=== PATIENT | male | born 1985 | race Caucasian/White ===

== ENCOUNTER 2019-04-29 19:13 | Emergency (ER) | payer SELFPAY ==
[~2019-04-29] VITALS: Ht 172.7 cm; Wt 84.0 kg
[2019-04-29 19:24] VITALS: BP 126/83
--- NOTE | 2019-04-29 19:30 | NUR ---
PT AMBULATED W/ STEADY GAIT TO BED 11.
--- NOTE | 2019-04-29 19:30 | NUR ---
33 Y/O MALE C/O THROAT PAIN WITH SWALLOWING X5 DAYS. VSS. SEEN AT BEDSIDE BY PA. CONTINUE TO MONITOR.
[2019-04-29] MEDS ORDERED: IBUPROFEN 400 MG TAB PO ONE (19:40)
--- NOTE | 2019-04-29 20:17 | NUR ---
DISCHARGE PAPERS GIVEN TO PT. PT STATES 3/10 THROAT PAIN BUT TOLLERABLE. RX OF IBUPROFEN GIVEN. SIDE EFFECTS EXPLAINED. INSTRUCTED TO F/U WITH PCP AND WHEN TO RETURN TO ER. PT VERBALLIZED UNDERSTANDING OF DC INSTRUCTIONS. ALL QUESTIONS ANSWERED.
[2019-04-29 20:24] VITALS: BP 126/83
== END 2019-04-29 20:17 | disposition home or self-care (01) ==
LOC: MED 19:13
DX: J02.8 Acute pharyngitis due to other specified organisms (principal); B97.89 Other viral agents as the cause of diseases classified elsewhere
CPT/HCPCS: 87081; 99283

== ENCOUNTER 2019-10-11 13:26 | Emergency (ER) | payer SELFPAY ==
[~2019-10-11] VITALS: Ht 172.7 cm; Wt 90.4 kg
[2019-10-11 13:37] VITALS: BP 127/89
--- NOTE | 2019-10-11 13:44 | NUR ---
PT AMBULATED TO ER BED 09
[2019-10-11] MEDS ORDERED: KETOROLAC 30 MG/ML VIAL IM ONE (14:50)
--- NOTE | 2019-10-11 15:22 | NUR ---
Patient discharged with v/s stable. Written and verbal after care instructions given and explained. Patient verbalized understanding. Ambulatory with steady gait. All questions addressed prior to discharge. Advised to follow up with PMD.
[2019-10-11 15:23] VITALS: BP 129/70
== END 2019-10-11 15:22 | disposition home or self-care (01) ==
LOC: MED 13:26
DX: S29.012A Strain of muscle and tendon of back wall of thorax, initial encounter (principal); V89.2XXA Person injured in unspecified motor-vehicle accident, traffic, initial encounter; Y93.89 Activity, other specified; Y92.89 Other specified places as the place of occurrence of the external cause; Y99.8 Other external cause status
CPT/HCPCS: 96372; 99283; J1885

== ENCOUNTER 2019-10-29 15:34 | Emergency (ER) | payer SELFPAY ==
[~2019-10-29] VITALS: Ht 175.3 cm; Wt 89.4 kg
[2019-10-29 16:16] VITALS: BP 130/76
--- NOTE | 2019-10-29 18:43 | NUR ---
CALLED FOR A BED. NO ANSWER. PATIENT LEFT WITHOUT BEING SEEN BY DR. ASENCIO. NO FURTHER CARE PROVIDED FOR PATIENT.
== END 2019-10-29 18:43 | disposition left against medical advice (07) ==
LOC: MED 15:34
DX: Z53.21 Procedure and treatment not carried out due to patient leaving prior to being seen by health care provider (principal)

== ENCOUNTER 2021-02-10 08:20 | Emergency (ER) | payer OTHER ==
[~2021-02-10] VITALS: Ht 167.6 cm; Wt 97.5 kg
[2021-02-10 08:25] VITALS: BP 142/97
--- NOTE | 2021-02-10 08:29 | NUR ---
PT AMBULATED TO ER BED 11 WITH A STEADY GAIT.
--- NOTE | 2021-02-10 08:33 | NUR ---
RN AT PT BEDSIDE FOR EVALUATION.
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
--- NOTE | 2021-02-10 08:36 | NUR ---
DR BRADFORD AT BEDSIDE
[2021-02-10] MEDS ORDERED: NAPR-1703 PO (08:49)
[2021-02-10 08:55] VITALS: BP 142/97
== END 2021-02-10 08:56 | disposition home or self-care (01) ==
LOC: MED 08:20
DX: G89.29 Other chronic pain (principal); M54.5 Low back pain; R03.0 Elevated blood-pressure reading, without diagnosis of hypertension; M51.26 Other intervertebral disc displacement, lumbar region
CPT/HCPCS: 99283

== ENCOUNTER 2021-12-18 15:07 | Emergency (ER) | payer OTHER ==
[~2021-12-18] VITALS: Ht 170.2 cm; Wt 100.7 kg
[~2021-12-18 15:07] MED LIST: NAPR-1703 PO
[2021-12-18 15:25] VITALS: BP 146/76
[2021-12-18] MEDS ORDERED: KETOROLAC 30 MG/ML VIAL IM ONE (15:50)
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
[2021-12-18] MEDS ORDERED: KETOROLAC 30 MG/ML VIAL ONE (17:16)
[2021-12-18] MEDS ORDERED: NAPR-54 PO (18:32)
[2021-12-18 18:47] VITALS: BP 146/76
== END 2021-12-18 18:46 | disposition home or self-care (01) ==
LOC: MED 15:07
DX: S30.1XXA Contusion of abdominal wall, initial encounter (principal); S30.21XA Contusion of penis, initial encounter; Z79.899 Other long term (current) drug therapy; W07.XXXA Fall from chair, initial encounter; Y93.89 Activity, other specified; Y92.89 Other specified places as the place of occurrence of the external cause; Y99.8 Other external cause status
CPT/HCPCS: 72170; 76870; 96372; 99284; J1885; Q0092

== ENCOUNTER 2022-08-10 20:22 | Emergency (ER) | payer OTHER ==
[~2022-08-10] VITALS: Ht 172.7 cm; Wt 99.8 kg
[~2022-08-10 20:22] MED LIST changes: +NAPR-54 PO
[2022-08-10 20:26] VITALS: BP 126/79
--- NOTE | 2022-08-10 20:34 | NUR ---
TO LOBBY FOLLOWING TRIAGE. UA OBTAINED
[2022-08-10 21:15] LABS: BASOPHILS # (AUTO) 0.1 K/uL (0.00-0.22); BASOPHILS % (AUTO) 1.4 % (0.0-2.0); EOSINOPHILS # (AUTO) 0.3 K/uL (0-0.4); EOSINOPHILS % (AUTO) 3.8 % (0.0-4.0); HEMATOCRIT 45.8 % (36-52); HEMOGLOBIN 16.2 g/dL (12.0-18.0); LYMPHOCYTES # (AUTO) 2.3 K/uL (2.0-11.5); LYMPHOCYTES % (AUTO) 27.9 % (20.5-51.1); MEAN CORPUSCULAR HEMOGLOBIN 33 pg (27-31); MEAN CORPUSCULAR HGB CONC 35 g/dL (33-37); MEAN CORPUSCULAR VOLUME 93.8 fL (80-94); MONOCYTES # (AUTO) 0.6 K/uL (0.8-1.0); MONOCYTES % (AUTO) 7.5 % (1.7-9.3); NEUTROPHILS % (AUTO) 59.4 % (42.2-75.2); PLATELET COUNT (AUTO) 229 K/uL (140-450); RED BLOOD CELL COUNT(AUTO) 4.89 MIL/uL (4.20-6.10); RED CELL DISTRIBUTION WIDTH 13.1 % (11.6-13.7); WHITE BLOOD COUNT (AUTO) 8.4 K/uL (4.8-10.8)
[2022-08-10 21:24] LABS: APPEARANCE,URINE CLEAR (CLEAR); BILIRUBIN,URINE NEGATIVE (NEGATIVE); BLOOD, URINE TRACE-I (NEGATIVE); COLOR,URINE YELLOW (YELLOW); LEUKOCYTE ESTERASE ,URINE NEGATIVE (NEGATIVE); NITRITE, URINE NEGATIVE (NEGATIVE); UGLUCOSE NEGATIVE (NEGATIVE)
[2022-08-10 21:32] LABS: ALBUMIN 3.8 g/dL (3.4-5.0); ANION GAP 13.6 (8-16); CARBON DIOXIDE 24.5 mmol/L (21-32); POTASSIUM 4.1 mmol/L (3.5-5.1); TOTAL BILIRUBIN 0.3 mg/dL (0.0-1.0)
[2022-08-10 21:41] LABS: RBC,URINE 0-5 /HPF (0-5); WBC,URINE 0-5 /HPF (0-5)
[2022-08-10 21:42] LABS: OTHER CASTS, URINE None Seen /LPF (None Seen)
--- NOTE | 2022-08-10 22:14 | NUR ---
PT TAKEN TO BED 7
--- NOTE | 2022-08-10 22:59 | NUR ---
Dr. Mckinney examining patient.
--- NOTE | 2022-08-10 23:20 | NUR ---
Patient taken to CT scan via wc
--- NOTE | 2022-08-10 23:31 | NUR ---
Patient returned from CT scan.
--- NOTE | 2022-08-11 02:10 | NUR ---
Patient appears to be resting comfortably in bed. Vital Signs within normal limits. Respirations even and unlabored.
--- NOTE | 2022-08-11 04:06 | NUR ---
Patient appears to be resting comfortably in bed. Vital Signs within normal limits. Respirations even and unlabored.
[2022-08-11 04:27] VITALS: BP 122/79
--- NOTE | 2022-08-11 04:27 | NUR ---
Patient discharged with v/s stable. Written and verbal after care instructions given and explained. Patient verbalized understanding. Ambulatory with to car. All questions addressed prior to discharge. Advised to follow up with PMD.
== END 2022-08-11 04:27 | disposition home or self-care (01) ==
LOC: MED 20:22
DX: R31.9 Hematuria, unspecified (principal); Z72.89 Other problems related to lifestyle
CPT/HCPCS: 36415; 80053; 81001; 85025; 99284

== ENCOUNTER 2022-10-23 20:53 | Emergency (ER) | payer OTHER ==
[~2022-10-23] VITALS: Ht 172.7 cm; Wt 99.8 kg
[2022-10-23 21:16] VITALS: BP 115/75
--- NOTE | 2022-10-23 21:45 | NUR ---
Dr. Ortez examining patient.
[2022-10-23] MEDS ORDERED: KETOROLAC 30 MG/ML VIAL IM ONE (21:50)
[2022-10-23] MEDS ORDERED: DEXAMETHASONE 10 MG/ML VIAL IM ONE (21:50)
[2022-10-23] MEDS ORDERED: LID5T TP (21:51)
[2022-10-23] MEDS ORDERED: NAPR-54 PO (21:51)
[2022-10-23] MEDS ORDERED: CYCL-711 PO (21:51)
[2022-10-23 22:58] VITALS: BP 122/75
--- NOTE | 2022-10-23 22:58 | NUR ---
Patient discharged with v/s stable. Written and verbal after care instructions given and explained. Patient alert, oriented and verbalized understanding of instructions. Ambulatory with steady gait. All questions addressed prior to discharge. ID band removed. Patient advised to follow up with PMD. Rx of Naproxen, Lidoderm and Flexeril given. Patient educated on indication of medication including possible reaction and side effects. Opportunity to ask questions provided and answered.
== END 2022-10-23 22:58 | disposition home or self-care (01) ==
LOC: MED 20:53
DX: M54.41 Lumbago with sciatica, right side (principal); Z79.899 Other long term (current) drug therapy
CPT/HCPCS: 96372; 99284; J1100; J1885